=== PATIENT | female | born 1965 | race Caucasian/White ===

== ENCOUNTER 2022-11-18 07:05 | Emergency (ER) | payer MEDICAID ==
[~2022-11-18] VITALS: Ht 165.1 cm; Wt 61.4 kg
[2022-11-18 07:10] VITALS: TEMP 98.2
[2022-11-18 07:51] VITALS: BP 137/104; PULSE 85
== END 2022-11-18 07:52 | disposition home or self-care (01) ==
LOC: COL.ER 07:05
DX: J06.9 Acute upper respiratory infection, unspecified (principal); Z20.822 Contact with and (suspected) exposure to COVID-19